=== PATIENT | female | born 1950 ===

== ENCOUNTER 2018-05-05 17:13 | Emergency (ER) | payer SELFPAY ==
[2018-05-05 17:22] VITALS: BP 217/90; PULSE 75; RESP 18; TEMP 97.3; O2SAT 99
--- NOTE | 2018-05-05 17:57 | C.PDOC ---
History Of Present Illness 68 year old female presents to ED for evaluation of detachment of permanent frontal caps in upper frontal teeth while eating today. [place] concerned for [place]. Patient offers no other medical complaints. Time Seen by Provider: 05/05/18 17:32 Chief Complaint (Nursing): Dental Pain History Per: Patient History/Exam Limitations: no limitations Onset/Duration Of Symptoms: Hrs Current Symptoms Are (Timing): Still Present Past Medical History Reviewed: Historical Data, Nursing Documentation, Vital Signs Vital Signs: Last Vital Signs Temp 97.3 F L 05/05/18 17:20 Pulse 75 05/05/18 17:20 Resp 18 05/05/18 17:20 BP 217/90 H 05/05/18 17:20 Pulse Ox 99 05/06/18 13:46 - Medical History PMH: HTN Surgical History: Appendectomy, Family History: States: No Known Family Hx - Social History Hx Alcohol Use: No Hx Substance Use: No - Immunization History Hx Tetanus Toxoid Vaccination: No Hx Influenza Vaccination: No Hx Pneumococcal Vaccination: No Review Of Systems Except As Marked, All Systems Reviewed And Found Negative. Constitutional: Negative for: Fever, Chills ENT: Positive for: Other (Detachment of permanent caps in upper frontal teeth.) . Negative for: Mouth Pain, Mouth Swelling, Throat Pain Physical Exam - Physical Exam Appears: Non-toxic, No Acute Distress Skin: Warm, Dry Head: Atraumatic, Normacephalic Eye(s): bilateral: Normal Inspection Oral Mucosa: Moist Tongue: Normal Appearing Lips: Normal Appearing Teeth: No Normal Dentition (Detached permanent caps from upper frontal teeth.) Throat: Normal Neck: Normal ROM, Supple Extremity: Normal ROM Neurological/Psych: Oriented x3, Normal Speech ED Course And Treatment O2 Sat by Pulse Oximetry: 99 (RA) Pulse Ox Interpretation: Normal Progress Note: Patient was instructed to rinse mouth with water after every meal. Patient was told to follow up at clinic to place caps in place. Disposition - Disposition Referrals: [facility] [Outside] Disposition: HOME/ ROUTINE Disposition Time: 17:54 Condition: STABLE Instructions: Dental Bridges (DC), How to Care for Your Mouth and Teeth Forms: [employer] ([place]), [facility] Print Language: IVORIAN - Clinical Impression Clinical Impression: Removable partial denture with loss of occlusal relationship - PA / STAMP CLERK / Resident Statement MD/DO has reviewed & agrees with the documentation as recorded. - Scribe Statement The provider has reviewed the documentation as recorded by the Jasminibe Eben Vance All medical record entries made by the Leoncio were at my direction and personally dictated by me. I have reviewed the chart and agree that the record accurately reflects my personal performance of the history, physical exam, medical decision making, and the department course for this patient. I have also personally directed, reviewed, and agree with the discharge instructions and disposition.
== END 2018-05-05 18:07 | disposition home or self-care (01) ==
LOC: C.ER 17:13
DX: Z46.3 Encounter for fitting and adjustment of dental prosthetic device (principal); I10 Essential (primary) hypertension